=== PATIENT | female | born 1950 | race Caucasian/White ===

== ENCOUNTER 2017-05-10 16:09 | Emergency (ER) | payer MEDICARE ==
[~2017-05-10] VITALS: Ht 160 cm; Wt 56.0 kg
[2017-05-10 16:12] VITALS: BP 140/91; PULSE 112; RESP 18; TEMP 97.8; O2SAT 100
--- NOTE | 2017-05-10 16:50 | PD ---
Physical Exam Time Seen by Provider: 16:49 Narrative 67yo F c/o L knee pain since yesterday after tryng to be helped into bed and heard a "pop." Was able to walk on the effected extremity after the incident. Patient seen in triage. VS reviewed. Awaiting bed placement. See next providers note for final patient disposition. Data Data Last Documented VS Vital Signs Date Time Temp Pulse Resp B/P (MAP) Pulse Ox O2 Delivery O2 Flow Rate FiO2 05/10/17 16:12 97.8 112 18 140/91 (107) 100 MDM Supervised Visit with TOMASZ: Stephenie Cooney May 10, 2017 16:50
--- NOTE | 2017-05-10 17:31 | RADRPT ---
EXAM DATE/TIME: 05/10/2017 17:17 [facility] COMPARISON: No previous studies available for comparison. INDICATIONS : Pain in left knee after injury yesterday. MEDICAL HISTORY : No pertinent medical or surgical history. SURGICAL HISTORY : ENCOUNTER: Initial ACUITY: 2 days PAIN SCORE: 10/10 LOCATION: Left knee. FINDINGS: Four view examination of the left knee demonstrates no evidence of fracture or dislocation. Bony min eralization is normal. The articular surfaces are intact. The suprapatellar soft tissues have a nor mal configuration. CONCLUSION: No acute abnormality demonstrated. Gilbert Sims MD on May 10, 2017 at 17:28 Board Certified Radiologist. This report was verified electronically.
--- NOTE | 2017-05-10 18:25 | PD ---
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 Daughter states that she was moving her mother into bed when her daughter accidentally twisted her knee resulting in this pain today. Daughter states that she heard a pop. Immediately afterwards, patient was able to walk but throughout the day it has become increasingly painful. Patient currently states that the pain as excruciating, nonradiating. Patient is still able to bear weight on the extremity. States that the knee has swollen up quite a bit compared to yesterday. States the patient needs assistance with ambulation and movement in the bed normally. Denies numbness or tingling of the extremity. PFSH Social History Tobacco Use: No Allergies-Medications (Allergen,Severity, Reaction): Coded Allergies: Sulfa (Sulfonamide Antibiotics) (Verified Allergy, Severe, 05/10/17) levofloxacin (Verified Allergy, Severe, 05/10/17) Reported Meds & Prescriptions Reported Meds & Active Scripts Active Ibuprofen 600 Mg Tab 600 Mg PO TID 5 Days Review of Systems Except as stated in HPI: all other systems reviewed are Neg Physical Exam Narrative GENERAL: Well-nourished, well-developed patient. SKIN: Focused skin assessment warm/dry. HEAD: Normocephalic. EYES: No scleral icterus. No injection or drainage. NECK: Supple, trachea midline. No JVD or lymphadenopathy. CARDIOVASCULAR: Regular rate and rhythm without murmurs, gallops, or rubs. RESPIRATORY: Breath sounds equal bilaterally. No accessory muscle use. MUSCULOSKELETAL: No cyanosis, or edema. Left Knee- tenderness palpation throughout the knee, popliteal pulse present, edema present surrounding the knee. No evidence of any breaks in the skin or infectious process. Patient has full range of motion of knee. Pain with posterior drawer and full extension of knee. Unable to perform valgus or varus maneuver because of the tenderness. Homans sign negative bilateral lower external BACK: Nontender without obvious deformity. No CVA tenderness. Data Data Last Documented VS Vital Signs Date Time Temp Pulse Resp B/P (MAP) Pulse Ox O2 Delivery O2 Flow Rate FiO2 05/10/17 16:12 97.8 112 18 140/91 (107) 100 Orders Orders Knee, Complete (4vws) (05/10/17 16:50) Acetamin-Hydrocod 325-5 Mg ([place] 5-325 (05/10/17 18:30) Splint Or Brace Apply/Monitor (05/10/17 18:27) Ed Discharge Order (05/10/17 18:28) [facility] Medical Decision Making Medical Screen Exam Complete: Yes Emergency Medical Condition: Yes Differential Diagnosis Left knee sprain, fracture, strain Narrative Course 67-year-old female with history of 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 Daughter states that she was moving her mother into bed when her daughter accidentally twisted her knee resulting in this pain today. Daughter states that she heard a pop. Immediately afterwards, patient was able to walk but throughout the day it has become increasingly painful. Patient currently states that the pain as excruciating, nonradiating. Patient is still able to bear weight on the extremity. States that the knee has swollen up quite a bit compared to yesterday. States the patient needs assistance with ambulation and movement in the bed normally. Denies numbness or tingling of the extremity. Vital signs stable. Physical exam findings consistent with a knee sprain. Possible meniscal injury based off of the mechanism. No evidence of intentional injury today. Patient will be placed in knee immobilizer and strongly advised follow-up with a primary care physician and orthopedic physician upon return to [place]. Advised of the knee immobilizer is for symptom relief and that she should continue to use her leg as usual, when tolerated. Patient uses a walker at home as she does have right-sided weakness after a CVA that occurred years ago. I offered case management involvement for potential help while in [place] for vacation. Patient and daughter declined. Daughter asked her pain medication for her symptoms however, because there was no fracture I felt that an anti-inflammatory would be more appropriate for her. Advised to use anti inflammatory sparingly along with Tylenol. Last Impressions Knee X-Ray 05/10/17 1650 Signed Impressions: Service Date/Time: Wednesday, May 10, 2017 17:17 - CONCLUSION: No acute abnormality demonstrated. Gilbert Sims MD Continue to rest, ice, compress, and elevate leg for symptom relief. Return to the emergency department for worsening or persistent symptoms. Diagnosis Primary Impression: Knee sprain Qualified Codes: S83.92XA - Sprain of unspecified site of left knee, initial encounter Referrals: Orthopedist Additional Instructions: Use ice or heat for symptom relief. Elevate the joint above the heart to reduce swelling. You may use compression with Renny wrap or similar to reduce swelling. If symptoms persist or worsen, return to the emergency department. Follow up with your primary care physician within 2 days. Scripts Ibuprofen (Ibuprofen) 600 Mg Tab 600 MG PO TID for Arthritis Pain for 5 Days, TAB 0 Refills Prov: Jayleen Walker 05/10/17 Disposition: 01 DISCHARGE HOME Condition: Stable Jayleen Walker May 10, 2017 18:25
[2017-05-10] MEDS ORDERED: IBUP-232 PO (18:27)
[2017-05-10] MEDS ORDERED: ACETAMINOPHEN/HYDROcodone 325 MG/5 MG TAB PO ONE (18:30)
== END 2017-05-10 18:50 | disposition home or self-care (01) ==
LOC: NEPK 16:09
DX: S83.92XA Sprain of unspecified site of left knee, initial encounter (principal); I69.951 Hemiplegia and hemiparesis following unspecified cerebrovascular disease affecting right dominant side; X50.1XXA Overexertion from prolonged static or awkward postures, initial encounter; Z88.2 Allergy status to sulfonamides; Z88.8 Allergy status to other drugs, medicaments and biological substances
CPT/HCPCS: 29505; 73564; 99283; L1830